=== PATIENT | female | born 1990 | race Caucasian/White ===

== ENCOUNTER 2019-07-16 13:06 | Emergency (ER) | payer SELFPAY ==
[~2019-07-16] VITALS: Ht 170.2 cm; Wt 91.4 kg
--- NOTE | 2019-07-16 13:42 | NUR ---
THIS IS A 28 YO FEMALE WHO PRESENTS TO THE ER C/O LIGHT SPOTTING AND CRAMPING SINCE WEDNESDAY THAT WORSENED TODAY TO BE HEAVY CRAMPING AND BLEEDING WITH CLOTS PER PT. LMP 05/07/20. G- 3 P - 1 A - 1. PT AO X 4. SKIN WARM AND DRY. RESP EVEN AND UNLABORED. RACHELE GLYNN AT BEDSIDE FOR EVAL. PT ON CONT BP, CARDIAC AND O2 MONITORS. CALL LIGHT WITHIN REACH. WILL CONT TO MONITOR PT.
[2019-07-16 13:49] LABS: BASOPHILS # (AUTO) 0.03 x10^3/uL (0-0.1); BASOPHILS % (AUTO) 0 % (0-1); EOSINOPHILS # (AUTO) 0.13 x10^3/uL (0-0.4); EOSINOPHILS % (AUTO) 2 % (1-7); LYMPHOCYTES # (AUTO) 1.93 x10^3/uL (1-3.4); LYMPHOCYTES % (AUTO) 24 % (22-44); MD NO; MEAN CORPUSCULAR HEMOGLOBIN 30.6 pg (27.0-34.8); MEAN CORPUSCULAR HGB CONC 33.4 g/dL (32.4-35.8); MEAN CORPUSCULAR VOLUME 91.4 fL (80-100); MEAN PLATELET VOLUME 7.2 fL (7.4-10.4); MONOCYTES # (AUTO) 0.58 x10^3/uL (0.2-0.8); MONOCYTES % (AUTO) 7 % (2-9); NEUTROPHILS # (AUTO) 5.31 x10^3/uL (1.8-6.8); NEUTROPHILS % (AUTO) 67 % (42-75); PLATELET COUNT 329 x10^3/uL (130-400); RED BLOOD COUNT 4.88 x10^6/uL (3.82-5.3); RED CELL DISTRIBUTION WIDTH 13.4 % (9.6-15.2)
[2019-07-16 13:59] LABS: ALBUMIN 3.4 g/dL (3.4-5.0); ANION GAP 5 mmol/L (5-15); CALCIUM 8.5 mg/dL (8.5-10.1); CHLORIDE 109 mmol/L (98-107); CREATININE 0.72 mg/dL (0.55-1.02)
--- NOTE | 2019-07-16 14:28 | NUR ---
PT PROVIDED WITH WARM BLANKET. PT CURRENTLY RESTING ON GURNEY. NAD NOTED. SKIN PWD. RESP EVEN AND UNLABORED. PT AWARE WE ARE WAITING FOR LAB/IMAGING RESULTS. PT ON CONT BP AND O2 MONITORS. AT BEDSIDE. CALL LIGHT WITHIN REACH. WILL CONT TO MONITOR PT.
[2019-07-16 14:30] VITALS: BP 108/76
--- NOTE | 2019-07-16 14:48 | NUR ---
PT TO IMAGING VIA [facility] AT THIS TIME.
--- NOTE | 2019-07-16 16:07 | NUR ---
Patient/Caregiver given discharge instructions and they have confirmed that they understand the instructions. Patient ambulatory with steady gait.
== END 2019-07-16 16:09 | disposition home or self-care (01) ==
LOC: ED 16:00
DX: O03.9 Complete or unspecified spontaneous abortion without complication (principal); R10.2 Pelvic and perineal pain
CPT/HCPCS: 36415; 76801; 80048; 82040; 84702; 85025; 86850; 86900; 99284